=== PATIENT | female | born 1995 ===

== ENCOUNTER 2025-01-01 07:42 | Emergency (ER) | payer SELFPAY ==
[2025-01-01 07:48] VITALS: BP 128/86; PULSE 104; RESP 18; TEMP 36.7; O2SAT 96; BMI 31.8
[2025-01-01] MEDS: DiphenhydrAMINE INJ 50 MG/ML VIAL 25 MG IM (08:30)
[2025-01-01] MEDS: HALOPERIDOL LACT INJ 5 MG/ML VIAL IM (08:30)
[2025-01-01] MEDS: LORazepam 2 MG/ML VIAL 1 MG IM (08:30)
--- NOTE | 2025-01-01 08:31 | PD.EDPSYCH ---
ED Psych RME/HPI General Chief Complaint: Altered Mental Status Stated Complaint: PT TALKING NONSENSE; PT BROUGHT IN MY STRANGER Time Seen by Provider: 01/01/25 08:09 Arrival date/time: 01/01/25 07:42 Limitations: no limitations RME / HPI RME / HPI Narrative: 29 year old female presents to the ED for evaluation of erratic behavior. She was brought in by a Good Druze who encountered her at a [employer], reporting that the patient was rambling and speaking incoherently. Upon arrival to the ED, the patient exhibits pressured speech and disorganized, rambling thoughts. She is unable to provide a coherent history. Related Data Previous Rx's ?Medication ?Instructions ?Recorded olanzapine 5 mg tablet (Zyprexa) 5 mg PO QPM schizophrenia #30 tabs 01/01/25 Allergies Allergy/AdvReac Type Severity Reaction Status Date / Time No Known Allergies Allergy Verified 01/01/25 08:16 Review of Systems Review of Systems ROS Unobtainable: unobtainable due to mental status Past Medical History Social History SMOKING STATUS: Never smoker ED Exam General Limitations: Present no limitations General appearance: Present other (Poor eye contact, pressured speech and thoughts, rambling speech ) Head Head exam: Present atraumatic, normocephalic and normal inspection Eye Eye exam: Present normal appearance and EOMI ENT ENT exam: Present normal exam, normal oropharynx and mucous membranes moist Neck Neck exam: Present normal inspection and full ROM Chest Chest inspection: Present normal inspection and symmetric chest wall rise Respiratory Respiratory exam: Present normal lung sounds bilaterally Cardiovascular Cardiovascular exam: Present regular rate, normal rhythm and normal heart sounds Abdominal Exam Abdominal exam: Present soft and normal bowel sounds Extremities Exam Extremities exam: Present normal inspection and full ROM Neurological Exam Neurological exam: Present alert and CN II-XII intact Psychiatric Psychiatric exam: Present other (Poor eye contact, pressured speech and thoughts, rambling speech ) Skin Skin exam: Present warm, dry, intact and normal color Course Quality Measures none Orders Category Date Time Status 4 HR Behavioral Restraints Q15M Care 01/01/25 08:52 Completed Consult Marine Cargo Surveyor NOW Care 01/01/25 14:50 Active Acetaminophen Stat Lab 01/01/25 09:54 Completed Alcohol, Blood Medical Stat Lab 01/01/25 09:54 Completed Basic Metabolic Panel Stat Lab 01/01/25 09:54 Completed CBC Stat Lab 01/01/25 09:54 Completed Drug Screen,Urine Stat Lab 01/01/25 08:15 Completed HCG Qualitative,Urine Stat Lab 01/01/25 08:15 Completed Salicylate Stat Lab 01/01/25 09:54 Completed DiphenhydrAMINE INJ [Benadryl Inj] Med 01/01/25 08:13 Discontinued 25 mg IM X1 ONE DiphenhydrAMINE INJ [Benadryl Inj] Med 01/01/25 08:13 Discontinued 50 mg .ROUTE .STK-MED ONE Haloperidol Lactate [Haldol Inj] Med 01/01/25 08:12 Discontinued 5 mg IM X1 ONE Haloperidol Lactate [Haldol Inj] Med 01/01/25 08:37 Discontinued 5 mg IM X1 ONE LORazepam [Ativan Inj] Med 01/01/25 08:12 Discontinued 1 mg IM X1 ONE LORazepam [Ativan Inj] Med 01/01/25 08:37 Discontinued 1 mg IM X1 ONE LORazepam [Ativan Inj] Med 01/01/25 08:12 Discontinued 2 mg .ROUTE .STK-MED ONE Potassium Chloride [K-Dur] Med 01/01/25 13:29 Discontinued 40 meq PO X1 ONE Potassium Chloride [K-Dur] Med 01/01/25 18:00 Once 40 meq PO X1 ONE Vital Signs Vital signs: Vital Signs Temperature 98.0 F 01/01/25 07:48 Pulse Rate 104 H 01/01/25 07:48 Respiratory Rate 18 01/01/25 07:48 Blood Pressure 128/86 H 01/01/25 07:48 Pulse Oximetry (%) 96 01/01/25 07:48 Oxygen Delivery Method Room Air 01/01/25 07:48 Psych MDM Narrative MDM Narrative:: Mikki Orta am scribing for and in the presence of Dr. Fritz. 0810: Bhavik calderón called overhead. 0826: Bhavik calderón called overhead. 1335: Patient has been medically cleared for mental health evaluation. Patent has been evaluated by clinical social worker who reports at this time patient has no suicidal ideation. Admits to using methamphetamine daily and has known history of schizophrenia. States patient has been provided with resources and clothing and clear to be discharged home. Patient data External records reviewed:: None (No previous ED visits for review ) Clinical information provided by:: patient Social determinants that could affect healthcare access:: mental health Patient has the following chronic illnesses:: Past medical hx unknown How is presenting disease/condition affected by chronic disease/condition?: no chronic disease Evaluation data The following diagnostics were reviewed and interpreted by me:: lab results Lab and/or radiology exams considered but not ordered:: None Interpretation Summary: CBC and CMP within normal limits UDS positive for methamphetamine and marijuana Medications / Prescriptions Medications or Prescriptions considered but not ordered:: None Medication administrations:: Medication Administration History Potassium Chloride (Potassium Chloride 20 Meq Tabcr) 40 meq PO X1 ONE Stop: 01/01/25 18:01 Discontinued Medications Diphenhydramine HCl (Diphenhydramine Inj 50 Mg/Ml Vial) 25 mg IM X1 ONE Stop: 01/01/25 08:14 Last Admin: 01/01/25 08:30 Dose: 25 mg Documented By: DANIELA Diphenhydramine HCl (Diphenhydramine Inj 50 Mg/Ml Vial) Confirm Administered Dose 50 mg .ROUTE .STK-MED ONE Stop: 01/01/25 08:14 Last Admin: 01/01/25 10:03 Dose: Not Given Documented By: DANIELA Non-Admin Reason: Override Medication Haloperidol Lactate (Haloperidol Lact Inj 5 Mg/Ml Vial) 5 mg IM X1 ONE Stop: 01/01/25 08:13 Last Admin: 01/01/25 08:30 Dose: 5 mg Documented By: DANIELA Haloperidol Lactate (Haloperidol Lact Inj 5 Mg/Ml Vial) 5 mg IM X1 ONE Stop: 01/01/25 08:38 Lorazepam (Lorazepam 2 Mg/Ml Vial) 1 mg IM X1 ONE Stop: 01/01/25 08:13 Lorazepam (Lorazepam 2 Mg/Ml Vial) Confirm Administered Dose 2 mg .ROUTE .STK-MED ONE Stop: 01/01/25 08:13 Last Admin: 01/01/25 10:11 Dose: Not Given Documented By: DANIELA Non-Admin Reason: Override Medication Lorazepam (Lorazepam 2 Mg/Ml Vial) 1 mg IM X1 ONE Stop: 01/01/25 08:38 Last Admin: 01/01/25 08:30 Dose: 1 mg Documented By: DANIELA Potassium Chloride (Potassium Chloride 20 Meq Tabcr) 40 meq PO X1 ONE Stop: 01/01/25 13:30 Last Admin: 01/01/25 14:10 Dose: 40 meq Documented By: CG See above Consultations Consultation(s) initiated? (list below): No Diagnosis Psych Differential Diagnosis: acute psychosis, chronic schizophrenia, bipolar disorder, depression, drug-induced psychotic disorder and acute anxiety Most likely diagnosis given after review of the tests above:: Exacerbation of schizophrenia Admission Indicated Admission indicated?: not indicated Admission Request Was there a request for admission?: No Disposition Plan Disposition Plan: Discharge Discharge Attestation Discharge Attestation: The patient and all family members were given an opportunity to ask questions and understood the discharge instructions. Discharge instructions specifically effects, indications for sooner follow up or return to the emergency department, and the expected course of current diagnosis. Patient condition: Stable Discharge Plan Plan Patient Disposition: HOME (Self Care) Prescriptions/Referrals Prescriptions/Med Rec: New olanzapine [Zyprexa] 5 mg tablet 5 mg PO QPM MDD 1 Qty: 30 0RF Referrals: No Primary/Family,Physician [Primary Care Provider] - In 1 week Problem List Clinical Impression: Schizophrenia Patient/Caregiver Discharge Instructions Education Materials: ED Schizophrenia, General Additional Instructions: Eat more potassium rich foods. Follow-up with your primary care doctor in 3 to 5 days for recheck. You can return to the emergency department sooner if symptoms worsen or if you notice any new, concerning issues. Print Language: Kinyarwanda Stand Alone Forms: Catina Award Info., Patient Portal Info Letter
[2025-01-01 08:52] LABS: HCG Qualitative,Urine Negative
[2025-01-01 09:04] LABS: Amphetamine/Methamp Scrn,U Positive (Negative); Barbiturate Screen,Urine Negative (Negative); Benzodiazepines Screen,Urine Negative (Negative); Benzoylecgonine Screen, Ur Negative (Negative); Fentanyl Screen,Urine Negative (Negative); Opiate Screen,Urine Negative (Negative); THC Screen,Urine Positive (Negative)
[2025-01-01 10:04] LABS: Basophils % (Auto) 0 % (0-2.5); Eosinophils # (Auto) 0.1 Thou/mm3 (0.0-0.5); Eosinophils % (Auto) 1 % (0-10); Hematocrit 35.3 % (36.0-46.0); Immature Granulocytes % (Auto) 0 % (0-0); Immature Granulocytes Auto 0.02 Thou/mm3 (0.00-0.00); Lymphocytes # (Auto) 3.9 Thou/mm3 (1.0-4.8); Lymphocytes % (Auto) 41 % (10-50); Mean Corpuscular Hemoglobin 29.5 pg (25.0-35.0); Mean Corpuscular Volume 87 fL (80-100); Monocytes # (Auto) 0.8 Thou/mm3 (0.0-0.8); Monocytes % (Auto) 8 % (0-12); Neutrophils # (Auto) 4.7 Thou/mm3 (1.8-7.7); Neutrophils % (Auto) 49 % (37-80); Nucleated Red Blood Cell % 0 /100 WBC (0); Platelet Count 317 Thou/mm3 (140-440); RDW Standard Deviation 49.2 fL (36.4-46.3); Red Blood Count 4.07 Miln/mm3 (4.00-5.20); White Blood Count 9.6 Thou/mm3 (3.6-11.0)
[2025-01-01 10:16] VITALS: BP 108/71; PULSE 79; RESP 16; TEMP 36.8; O2SAT 100
[2025-01-01 10:21] LABS: Acetaminophen < 2.0 mcg/mL (10.0-20.0); Alcohol, Blood Medical < 10.0 mg/dL (0-10.0); Anion Gap 8 (7-16); BUN/Creatinine Ratio 19 Ratio (12-20); Blood Urea Nitrogen 13 mg/dL (9-23); Calcium 8.6 mg/dL (8.3-10.6); Carbon Dioxide 27.6 mMol/L (20.0-31.0); Chloride 106 mMol/L (98-107); Creatinine (Component) 0.7 mg/dL (0.6-1.3); Estimated Creatinine Clearance 121.1 mL/min (>60); Glucose 95 mg/dL (74-106); Osmolality,Calculated 283 (275-295); Salicylate < 3.0 mg/dL; Sodium 142 mMol/L (136-145); eGFR > 60 See Note
[2025-01-01] MEDS: POTASSIUM CHLORIDE 20 mEq TABCR 40 MEQ PO (14:10)
--- NOTE | 2025-01-01 14:34 | PC.CC ---
ASW Kerry De Dios met with patient [id number] to complete a mental health assessment. ASW introduced self, role, and reason for assessment. ASW disclosed limits of confidentiality as well. Patient appeared alert and oriented to self, place, and situation. Patient was pleasant; her mood appeared calm and non aggressive. Patient?s thought process was linear and organized. No signs of delusions, paranoid or AVH. Pt is medically cleared. Pt denies SI/HI. Pt reports she is homeless and [place] [facility] [facility]. Pt reports she has h/o mental health concerns such as schizophrenia, but has not received treatment in years. Pt reports she uses Meth daily or at least 3xs a week when she has access to it. Pt reports she is coming off meth and knows that she can be aggressive and hallucinate when she is at her worst. Pt is aware of how she got to the ER and stated she was acting erratic in public and a unknown person who was concerned so the person brought her to the ER. Pt reports she slept and ate here at the ER and feels better. Pt reports she has friends for support and people who run the homeless usp for support. Pt is adament that she denies SI/HI, self harm. ASW staffed with ROUTE VENDING MACHINE SERVICER Director Kp Tay and it was agreed to offer community resources and safety plan with the pt. ER medical provider agrees and RN is aware. Columnist/Commentator provided community resource for AOD services and provided pt with clothes. Pt was receptive.
--- NOTE | 2025-01-01 15:01 | PC.CC ---
ASW Kerry De Dios met with patient [id number] to complete a mental health assessment. ASW introduced self, role, and reason for assessment. ASW disclosed limits of confidentiality as well. Patient appeared alert and oriented to self, place, and situation. Patient was pleasant; her mood appeared calm and non aggressive. Patient?s thought process was linear and organized. No signs of delusions, paranoid or AVH. Pt is medically cleared. Pt denies SI/HI. Pt reports she is homeless and stays at the homeless nursing home on [facility], near [facility]. Pt reports she has h/o mental health concerns such as schizophrenia, but has not received treatment in years. Pt reports she uses Meth daily or at least 3xs a week when she has access to it. Pt reports she is coming off meth and knows that she can be aggressive and hallucinate when she is at her worst. Pt is aware of how she got to the ER and stated she was acting erratic in public and a unknown person who was concerned so the person brought her to the ER. Pt reports she slept and ate here at the ER and feels better. Pt reports she has friends for support and people who run the homeless nursing home for support. Pt is adament that she denies SI/HI, self harm. ASW staffed with PREPARED FOODS ASSOCIATE Director Kp Tay and it was agreed to offer community resources and safety plan with the pt. ER medical provider agrees and RN is aware. Game Author provided community resource for AOD services and provided pt with clothes. Pt was receptive.
[2025-01-01 15:39] VITALS: BP 122/63; PULSE 99; RESP 14; TEMP 35.8; O2SAT 95
== END 2025-01-01 15:41 | disposition home or self-care (01) ==
PROVIDERS: Emergency Provider Family Medicine
DX: F20.9 Schizophrenia, unspecified (principal)
CPT/HCPCS: 36415; 80048; 80307; 80320; 80329; 81025; 85025; 96372; 99285; J1200; J1630; J2060; A9270; G0480

== ENCOUNTER 2025-01-02 09:00 | Emergency (ER) | payer SELFPAY ==
[2025-01-02 09:04] VITALS: BP 127/83; PULSE 117; RESP 18; TEMP 36.7; O2SAT 98
[2025-01-02 09:06] VITALS: BMI 31.8
[2025-01-02 09:14] VITALS: PULSE 125; RESP 20
--- NOTE | 2025-01-02 09:29 | PC.NURSE ---
Patient to er via ems from [place] unresponsive on the ground, bystander called PD and EMS, upon ems arrival, patient [place] bench at park, patient had snoring resp. pinpoint pupils, responded to pain, per Supervisor Bottle Machines gave Narcan 2mg IN and patient awoke en route, alert and oriented. Currently patient lethargic, answering most questions appropriately, however, intermittently making random statements like over here out of content of questions being asked, patient states she is thirsty, patient drinking apple juice. When asking patient questions, patient answering questions however, falls back to sleep easily. Patient arousable to voice. Patient denies SI and HI, Dr. Fritz aware of patient's status, call light within reach.
[2025-01-02] MEDS: ONDANSETRON ODT 4 MG TABRAP PO (09:45)
[2025-01-02 09:46] LABS: Basophils # (Auto) 0.1 Thou/mm3 (0.0-0.2); Basophils % (Auto) 0 % (0-2.5); Eosinophils # (Auto) 0.1 Thou/mm3 (0.0-0.5); Eosinophils % (Auto) 0 % (0-10); Hematocrit 36.1 % (36.0-46.0); Hemoglobin 12.1 g/dL (12.0-16.0); Immature Granulocytes % (Auto) 0 % (0-0); Immature Granulocytes Auto 0.07 Thou/mm3 (0.00-0.00); Lymphocytes # (Auto) 1.9 Thou/mm3 (1.0-4.8); Lymphocytes % (Auto) 10 % (10-50); Mean Corpuscular HGB Conc 33.5 g/dl (31.0-37.0); Mean Corpuscular Hemoglobin 29.4 pg (25.0-35.0); Mean Corpuscular Volume 88 fL (80-100); Monocytes # (Auto) 1.6 Thou/mm3 (0.0-0.8); Monocytes % (Auto) 8 % (0-12); Neutrophils # (Auto) 15.1 Thou/mm3 (1.8-7.7); Neutrophils % (Auto) 80 % (37-80); Nucleated Red Blood Cell % 0 /100 WBC (0); Platelet Count 324 Thou/mm3 (140-440); RDW Standard Deviation 50.4 fL (36.4-46.3); Red Blood Count 4.12 Miln/mm3 (4.00-5.20); White Blood Count 18.8 Thou/mm3 (3.6-11.0)
[2025-01-02 10:23] LABS: Acetaminophen < 2.0 mcg/mL (10.0-20.0); Alcohol, Blood Medical < 10.0 mg/dL (0-10.0); Anion Gap 7 (7-16); BUN/Creatinine Ratio 19 Ratio (12-20); Blood Urea Nitrogen 15 mg/dL (9-23); Calcium 8.6 mg/dL (8.3-10.6); Carbon Dioxide 26.8 mMol/L (20.0-31.0); Chloride 107 mMol/L (98-107); Creatinine (Component) 0.8 mg/dL (0.6-1.3); Estimated Creatinine Clearance 105.9 mL/min (>60); Glucose 143 mg/dL (74-106); Osmolality,Calculated 284 (275-295); Salicylate < 3.0 mg/dL; Sodium 141 mMol/L (136-145); eGFR > 60 See Note
--- NOTE | 2025-01-02 10:41 | PD.EDAMS ---
Altered Mental Status RME/HPI General Chief Complaint: Altered Mental Status Stated Complaint: AMS Time Seen by Provider: 01/02/25 09:03 Arrival date/time: 01/02/25 09:00 Limitations: no limitations RME / HPI RME / HPI narrative: 29 year old female with history of homelessness, schizophrenia, and polysubstance abuse presents to the ED BIBA for altered mental status. Per medics report, the patient was found unresponsive by a bystander in the park. When EMS arrived, state the patient was sitting in a park bench with snoring respirations and pupils were pin point. Was given 2mg IN Narcan with improvement in mental status. On arrival to ED patient complains of nausea otherwise no other complaints reported. Related Data Previous Rx's ?Medication ?Instructions ?Recorded olanzapine 5 mg tablet (Zyprexa) 5 mg PO QPM schizophrenia #30 tabs 01/01/25 Allergies Allergy/AdvReac Type Severity Reaction Status Date / Time No Known Allergies Allergy Verified 01/01/25 08:16 Review of Systems Review of Systems Systems Reviewed: All systems reviewed, normal except as documented ED Exam General Limitations: Present no limitations General appearance: Present alert and in no apparent distress Head Head exam: Present atraumatic, normocephalic and normal inspection Eye Eye exam: Present normal appearance, PERRL and EOMI ENT ENT exam: Present normal exam, normal oropharynx and mucous membranes moist Neck Neck exam: Present normal inspection, full ROM and trachea midline Chest Chest inspection: Present normal inspection and symmetric chest wall rise Respiratory Respiratory exam: Present normal lung sounds bilaterally Cardiovascular Cardiovascular exam: Present regular rate, normal rhythm and normal heart sounds Abdominal Exam Abdominal exam: Present soft and normal bowel sounds Extremities Exam Extremities exam: Present normal inspection and full ROM Back Exam Back exam: Present normal inspection and full ROM Neurological Exam Neurological exam: Present alert, oriented X3 and CN II-XII intact Psychiatric Psychiatric exam: Present normal affect and normal mood Skin Skin exam: Present warm, dry, intact and normal color Course Quality Measures none Orders Category Date Time Status Consult Angio Technologist NOW Care 01/02/25 12:15 Active Acetaminophen Stat Lab 01/02/25 09:26 Completed Alcohol, Blood Medical Stat Lab 01/02/25 09:26 Completed Alcohol, Urine Stat Lab 01/02/25 10:38 Completed Basic Metabolic Panel Stat Lab 01/02/25 09:26 Completed CBC Stat Lab 01/02/25 09:26 Completed Drug Screen,Urine Stat Lab 01/02/25 10:38 Completed HCG Qualitative,Urine Stat Lab 01/02/25 10:38 Completed Salicylate Stat Lab 01/02/25 09:26 Completed Urinalysis, C/S if Indicated Stat Lab 01/02/25 10:38 Completed Urine Culture Stat Lab 01/02/25 10:38 Received Haloperidol Lactate [Haldol Inj] Med 01/02/25 16:48 Discontinued 5 mg IM X1 ONE LORazepam [Ativan Inj] Med 01/02/25 16:48 Discontinued 0.5 mg IM X1 ONE LORazepam [Ativan] Med 01/02/25 09:06 Discontinued 0.5 mg PO X1 ONE Ondansetron Odt [Zofran Odt] Med 01/02/25 09:38 Discontinued 4 mg PO X1 ONE cefTRIAXone [Rocephin] 1,000 mg Med 01/02/25 16:28 Discontinued Lidocaine 1% 20 ml [Xylocaine 1% 20 ML] 2.1 ml IM X1 risperiDONE [RisperDAL] Med 01/02/25 09:06 Discontinued 1 mg PO X1 ONE Vital Signs Vital signs: Vital Signs Temperature 98.0 F 01/02/25 09:04 Pulse Rate 117 H 01/02/25 09:04 Respiratory Rate 18 01/02/25 09:04 Blood Pressure 127/83 01/02/25 09:04 Pulse Oximetry (%) 98 01/02/25 09:04 Oxygen Delivery Method Room Air 01/02/25 09:04 Pulse ox is 98% on room air which is adequate. Altered Mental Status MDM Narrative MDM Narrative:: Mikki Orta am scribing for and in the presence of Dr. Fritz. 1210: Patient medically cleared for social insurance analyst consultation. 1445: The director social service reports she has met with the patient. Was provided with resources to rehab facilities and states she is willing to participate. Patient has remained stable through ED course, wll DC home. Patient data External records reviewed:: [facility] previous records (I reviewed ED Visit from yesterday 01/02/2025) and EMS form Clinical information provided by:: patient and EMS Social determinants that could affect healthcare access:: substance use Patient has the following chronic illnesses:: homelessness, schizophrenia, and polysubstance abuse How is presenting disease/condition affected by chronic disease/condition?: exacerbated by Evaluation data The following diagnostics were reviewed and interpreted by me:: lab results Lab and/or radiology exams considered but not ordered:: None Interpretation Summary: UA shows mild infection which will be treated with a dose of Rocephin here Medications / Prescriptions Medications or Prescriptions considered but not ordered:: None Medication administrations:: Medication Administration History Discontinued Medications Ceftriaxone Sodium 1,000 mg/ (Lidocaine HCl 2.1 ml) 0 mg IM X1 ONE Stop: 01/02/25 16:29 Last Admin: 01/02/25 16:43 Dose: 1,000 mg Documented By: AMADA Comments: Haloperidol Lactate (Haloperidol Lact Inj 5 Mg/Ml Vial) 5 mg IM X1 ONE Stop: 01/02/25 16:49 Last Admin: 01/02/25 17:00 Dose: 5 mg Documented By: AMADA Lorazepam (Lorazepam 0.5 Mg Tablet) 0.5 mg PO X1 ONE Stop: 01/02/25 09:07 Last Admin: 01/02/25 09:38 Dose: Not Given Documented By: AMADA Non-Admin Reason: Cancelled by Provider Lorazepam (Lorazepam 2 Mg/Ml Vial) 0.5 mg IM X1 ONE Stop: 01/02/25 16:49 Last Admin: 01/02/25 16:59 Dose: 0.5 mg Documented By: AMADA Ondansetron HCl (Ondansetron Odt 4 Mg Tabrap) 4 mg PO X1 ONE; Protocol Stop: 01/02/25 09:39 Last Admin: 01/02/25 09:45 Dose: 4 mg Documented By: AMADA Risperidone (Risperidone 1 Mg Tablet) 1 mg PO X1 ONE Stop: 01/02/25 09:07 Last Admin: 01/02/25 09:38 Dose: Not Given Documented By: AMADA Non-Admin Reason: Cancelled by Provider See above Consultations Consultation(s) initiated? (list below): No Diagnosis Differential diagnosis altered mental status: alcoholic intoxication, hypoglycemia and other (Polysubstance abuse ) Most likely diagnosis given after review of the tests above:: Polysubstance abuse chronic schizophrenia Admission Indicated Admission indicated?: not indicated Admission Request Was there a request for admission?: No Disposition Plan Disposition Plan: Discharge Discharge Attestation Discharge Attestation: The patient and all family members were given an opportunity to ask questions and understood the discharge instructions. Discharge instructions specifically effects, indications for sooner follow up or return to the emergency department, and the expected course of current diagnosis. Patient condition: Stable Discharge Plan Plan Patient Disposition: HOME (Self Care) Prescriptions/Referrals Prescriptions/Med Rec: No Action olanzapine [Zyprexa] 5 mg tablet 5 mg PO QPM MDD 1 Qty: 30 0RF Referrals: No Primary/Family,Physician [Primary Care Provider] - In 1 week Problem List Clinical Impression: Substance abuse, Chronic schizophrenia Patient/Caregiver Discharge Instructions Education Materials: ED Drug Abuse, ED Schizophrenia, General Additional Instructions: As you discussed with the director social service, please call the rehab facilities to start your treatment. Follow-up with your primary care doctor in 3 to 5 days for recheck. You can return to the emergency department sooner if symptoms worsen or if you notice any new, concerning issues. Print Language: Tunisian Stand Alone Forms: Catina Award Info., Patient Portal Info Letter
[2025-01-02 11:05] LABS: HCG Qualitative,Urine Negative
[2025-01-02 11:15] LABS: Alcohol, Urine Negative (Negative); Amphetamine/Methamp Scrn,U Positive (Negative); Barbiturate Screen,Urine Negative (Negative); Benzodiazepines Screen,Urine Negative (Negative); Benzoylecgonine Screen, Ur Negative (Negative); Fentanyl Screen,Urine Positive (Negative); Opiate Screen,Urine Negative (Negative); THC Screen,Urine Positive (Negative)
--- NOTE | 2025-01-02 12:00 | PC.NURSE ---
Patient provided with ice chips per her request, denies n/v,, ok per dr. Fritz
[2025-01-02 12:28] VITALS: BP 120/71; PULSE 108; RESP 16; TEMP 36.7; O2SAT 98
[2025-01-02 13:39] LABS: Collection Type, Urine Clean Catch; RBC,Urine 0 /hpf (0-3)
[2025-01-02 13:44] LABS: Amorphous Crystals,Urine Present (Absent); Bacteria,Urine Rare; Bilirubin,Urine Negative (Negative); Blood,Urine Negative (Negative); Clarity,Urine Turbid (Clear/Hazy); Color,Urine Lt-Yellow (Lt Yel-Yel); Culture Indicated,Urine Yes; Glucose, Urine Negative (Negative); Hyaline Casts,Urine < 1 /hpf (0-1); Ketones,Urine Negative (Negative); Leukocyte Esterase,Urine Positive (Negative); Nitrite,Urine Negative (Negative); PH,Urine 6.5 (5.0-7.0); Protein,Urine Negative (Neg - Trace); Specific Gravity,Urine 1.022 (1.001-1.035); Squamous Epithelial Cell,Urine 8 /hpf (0-5); Urobilinogen,Urine Negative mg/dL (0.0-1.0); WBC,Urine 29 /hpf (0-5)
[2025-01-02 14:56] VITALS: BP 120/71; PULSE 66; RESP 15; TEMP 36.7; O2SAT 100
--- NOTE | 2025-01-02 15:25 | PC.NURSE ---
Patient provided with sandwich, chips and orange juice, ok per Dr. Fritz
--- NOTE | 2025-01-02 15:41 | PC.NURSE ---
Patient medically cleared, patient awaiting to be evaluated by Industrial Nurse per dr. de la rosa request, states patient unable to care for herself, h/o Pschizophrenia and is unable to clear for herself, Yesenia from s/s is aware.
--- NOTE | 2025-01-02 15:59 | PC.CC ---
Addendum entered by Lia De Dios 01/02/25 17:01: ASW staffed with [facility], Director Kp Tay and it was determined to safety plan with the pt and provide community resources to pt regarding drug and alcohol rehab. ASW informed RN and medical provider and they both agreed. Original Note: ASW Kerry De Dios met with patient [id number] to complete assessment. ASW introduced self, role, and reason for assessment. ASW disclosed limits of confidentiality as well. Patient appeared alert and oriented to self, place, and situation. Patient was pleasant; her mood was anxious and her behavior was fidgety and restless. No signs of delusions, paranoid or AVH. Pt reports that she was BIBA due to being asleep in a park area. Pt reports she occasionaly stays at the homeless half-way, but stays at any place she can stay. Pt reports she recently used Meth and Fentynal. Pt reports she is coming off and reports she is itchy every where on her body. Pt denies SI/HI, self harm. Pt reports she has h/o depression and anxiety and stated she has schiozphrenia but has not received treatment in years. ASW asked pt if she would like information on outpatient or inpatient rehab and she said, Yes. Pt reports she wants to be sober but does not know how to get help. ASW attempted to make an appointment for the pt for outpatient drug counseling services but was told that the pt needs to call herself and make the appointment. Pt stated she does not have a cell phone but can call the drug rehab place or go there in person. ASW asked pt is she feels her mental health issues interfere with her daily care and taking care of her mental health, and pt said, No. Pt went on to say that even though she uses drugs she is aware that she needs help. Pt reports she is willing to go to rehab if it were offered to her. ASW asked pt where she would be going up d/c and she stated she would be going to [employer], as the half-way is next to a [employer]. ASW provided pt with community resources such as mental health guides, information to [facility] [place] [facility] and [facility] and [facility]. Pt was receptive. It should be known that pt was in the ER on 01/01/25 as a good Spiritism brought the pt to the ED because she was acting erratic in the middle of the road near [facility]. Pt was provided community resources at that time and at that time she was also receptive. On 01/01/25 pt reported she would self refer to Drug and Alcohol outpatient support but she declined. Today pt is accepting the resources. Pt reports that upon d/c she will go to the half-way next to [facility]. It should be known that the Pt reports that the half-way kicks everyone out early and she went to the park to sleep this morning and that is why she was found asleep at the park.
[2025-01-02] MEDS: cefTRIAXone 1,000 MG, LIDOCAINE 1% 20 ML 2.1 ML IM (16:43)
--- NOTE | 2025-01-02 16:46 | PC.NURSE ---
Patient hyperactive, walking around in ER room 17, patient taking her clothes off and on, patient redirectable and following commands, however, talking to herself and is having flight of ideas. Patient provided with warm blanket and cold water and has no other needs at this time>
[2025-01-02] MEDS: LORazepam 2 MG/ML VIAL 0.5 MG IM (16:59)
[2025-01-02] MEDS: HALOPERIDOL LACT INJ 5 MG/ML VIAL IM (17:00)
== END 2025-01-02 17:10 | disposition home or self-care (01) ==
PROVIDERS: Emergency Provider Family Medicine
DX: F20.9 Schizophrenia, unspecified (principal); F19.10 Other psychoactive substance abuse, uncomplicated
CPT/HCPCS: 36415; 80048; 80307; 80320; 80329; 81001; 81025; 85025; 87086; 96127; 96372; 99284; J0696; J1630; J2060; J3490; Q0162; G0480